=== PATIENT | male | born 1935 | race Caucasian/White ===

== ENCOUNTER 2018-12-19 18:09 | Observation (INO) ==
[2018-12-19] MEDS ORDERED: 0.9 % Sodium Chloride 1,000 ML IVC STA (18:24)
[2018-12-19 18:51] LABS: Basophils % 0.3 %; Eosinophils # 0.1 K/mcL (0.0-0.6); Eosinophils % 1.6 %; Hematocrit 46.7 % (37.5-50.1); Hemoglobin 15.7 g/dL (12.9-16.9); Immature Granulocytes % 0.5 % (0-4); Lymphocytes # 0.7 K/mcL (0.6-4.6); Lymphocytes % 8.5 %; Mean Corpuscular HGB Conc 33.6 g/dL (31.6-35.5); Mean Corpuscular Hemoglobin 30.3 pg (28.0-33.3); Mean Corpuscular Volume 90.2 fL (83.0-100.0); Mean Platelet Volume 11.2 fL (9.4-12.4); Monocytes # 0.4 K/mcL (0.0-1.3); Monocytes % 5.1 %; Neutrophils # 7.3 K/mcL (1.6-8.9); Platelet Count 164 K/mcL (140-400); Red Blood Count 5.18 M/mcL (4.19-5.50); Red Cell Distribution Width 13.3 % (11.5-14.5); White Blood Count 8.7 K/mcL (4.3-11.1)
[2018-12-19 19:12] LABS: Potassium 4.5 mEq/L (3.5-5.1)
[2018-12-19 19:13] LABS: Calcium 10.2 mg/dL (8.6-10.3); Magnesium 1.9 mg/dL (1.6-2.6); Troponin I 0.03 ng/mL (< 0.04)
[2018-12-19] MEDS ORDERED: Aspirin 81 MG TAB.CHEW PO ONE (20:13)
[2018-12-19] MEDS ORDERED: Naloxone 0.4 MG/ML INJ IVP PRN (23:08)
[2018-12-19] MEDS ORDERED: *HR* Dextrose 50 % in Water (Syg) 50 ML SYRINGE IVP PRN (23:11)
[2018-12-19] MEDS ORDERED: D5% in Water 1,000 ML IVC PRN (23:11)
[2018-12-19] MEDS ORDERED: Dextrose Gel 15 GM/37.5 ML TUBE PO PRN ×2 (23:11)
[2018-12-19] MEDS ORDERED: 0.9 % Sodium Chloride 1,000 ML IVC SCH (23:15)
[2018-12-20] MEDS: Insulin LISPRO 300 UNITS/3 ML VIAL SQ SCH ×4 (00:22→18:34)
[2018-12-20] MEDS ORDERED: *HR* Heparin 5,000 UNIT/ML VIAL IVP ONE (04:10)
[2018-12-20] MEDS ORDERED: *HR* Heparin 5,000 UNIT/ML VIAL IVP PRN ×2 (04:10)
[2018-12-20] MEDS ORDERED: Heparin 25,000 UNIT/250 ML D5W 25,000 UNIT/250 ML IV.SOLN IVC SCH (04:15)
[2018-12-20 06:17] LABS: Hematocrit 41.4 % (37.5-50.1); Mean Corpuscular HGB Conc 34.1 g/dL (31.6-35.5); Mean Corpuscular Hemoglobin 29.9 pg (28.0-33.3); Mean Corpuscular Volume 87.9 fL (83.0-100.0); Mean Platelet Volume 10.9 fL (9.4-12.4); Platelet Count 152 K/mcL (140-400); Red Blood Count 4.71 M/mcL (4.19-5.50); Red Cell Distribution Width 13.4 % (11.5-14.5); White Blood Count 9.8 K/mcL (4.3-11.1)
[2018-12-20 06:19] LABS: Hemoglobin 14.1 g/dL (12.9-16.9)
[2018-12-20 06:24] LABS: INR 1.1; Prothrombin Time 12.5 Seconds (9.4-12.1)
[2018-12-20 06:27] LABS: Heparin anti-factor XA UFH 1.16 IU/mL (0.30-0.70)
[2018-12-20 06:38] LABS: BUN/Creatinine Ratio 21 (6-26); Blood Urea Nitrogen 36 mg/dL (8-23); Calcium 9.5 mg/dL (8.6-10.3); Carbon Dioxide 28 mEq/L (23-29); Chloride 109 mEq/L (98-107); Glucose 112 mg/dL (70-105); Osmolality,Calculated 301 (280-300); Potassium 3.8 mEq/L (3.5-5.1); Sodium 141 mEq/L (136-145); eGFR For African Americans 47 (> 60); eGFR For Non-African Americans 39 (> 60)
[2018-12-20 06:48] LABS: Troponin I > 73.00 ng/mL (< 0.04)
[2018-12-20 07:56] LABS: Estimated Average Glucose 160 mg/dl
[2018-12-20] MEDS: Lisinopril 20 MG TABLET PO SCH (12:22)
[2018-12-20] MEDS: Aspirin 81 MG TAB.CHEW PO SCH (12:22)
[2018-12-20] MEDS ORDERED: *HR* OxyCODONE/APAP 5/325 TABLET PO PRN (18:53)
[2018-12-20] MEDS ORDERED: Acetaminophen 325 MG TABLET PO PRN (20:57)
[2018-12-21] MEDS: Insulin LISPRO 300 UNITS/3 ML VIAL SQ SCH (00:17)
[2018-12-21] MEDS: Lisinopril 20 MG TABLET PO SCH (07:49)
[2018-12-21] MEDS: Aspirin 81 MG TAB.CHEW PO SCH (07:49)
[2018-12-21 07:50] VITALS: BP 144/72
[2018-12-21 08:32] LABS: Basophils % 0.4 %; Eosinophils # 0.2 K/mcL (0.0-0.6); Hematocrit 45.1 % (37.5-50.1); Hemoglobin 15.2 g/dL (12.9-16.9); Immature Granulocytes % 0.3 % (0-4); Mean Corpuscular HGB Conc 33.7 g/dL (31.6-35.5); Mean Platelet Volume 11.3 fL (9.4-12.4); Monocytes # 0.5 K/mcL (0.0-1.3); Monocytes % 6.4 %; Neutrophils # 6.1 K/mcL (1.6-8.9); Platelet Count 166 K/mcL (140-400); Red Blood Count 5.07 M/mcL (4.19-5.50); Red Cell Distribution Width 13.7 % (11.5-14.5); Segmented Neutrophils % 77.9 %; White Blood Count 7.9 K/mcL (4.3-11.1)
[2018-12-21 08:39] LABS: Calcium 9.4 mg/dL (8.6-10.3); Potassium 3.9 mEq/L (3.5-5.1)
[2018-12-21 09:32] LABS: Bilirubin,Urine Negative (Negative); Blood,Urine Negative (Negative); Clarity,Urine Clear (Clear); Color,Urine Yellow (Yellow); Glucose,Urine (UA) Normal (Normal); Ketones,Urine Negative (Negative); Leukocyte Esterase,Urine Negative (Negative); Nitrite,Urine Negative (Negative); Protein,Urine Trace mg/dL (Neg-Trace); Specific Gravity,Urine 1.023 (1.010-1.025); Urobilinogen,Urine Normal (Normal)
== END 2018-12-21 12:11 | disposition home health service (06) ==
LOC: 3BNU 18:09 → EMEROOARM 18:09 → SUATTDRO 21:48 → 3BNU 22:17
PROVIDERS: ADMIT Internal Medicine; ATTEND Family Medicine

== ENCOUNTER 2020-07-01 14:55 | Observation (INO) ==
[2020-07-01 15:25] LABS: Basophils % 0.3 %; Eosinophils # 0.1 K/mcL (0.0-0.6); Eosinophils % 1.2 %; Hemoglobin 12.6 g/dL (12.9-16.9); Immature Granulocytes % 0.6 % (0-4); Lymphocytes % 13.9 %; Mean Corpuscular HGB Conc 30.7 g/dL (31.6-35.5); Mean Corpuscular Hemoglobin 29.4 pg (28.0-33.3); Mean Corpuscular Volume 95.6 fL (83.0-100.0); Mean Platelet Volume 10.8 fL (9.4-12.4); Monocytes # 0.6 K/mcL (0.0-1.3); Monocytes % 8.3 %; Neutrophils # 5.5 K/mcL (1.6-8.9); Platelet Count 200 K/mcL (140-400); Red Blood Count 4.29 M/mcL (4.19-5.50); Red Cell Distribution Width 16.2 % (11.5-14.5); Segmented Neutrophils % 75.7 %; White Blood Count 7.2 K/mcL (4.3-11.1)
[2020-07-01 15:47] LABS: BUN/Creatinine Ratio 19 (6-26); Blood Urea Nitrogen 26 mg/dL (8-23); Calcium 9.2 mg/dL (8.6-10.3); Carbon Dioxide 26 mEq/L (23-29); Chloride 107 mEq/L (98-107); Glucose 129 mg/dL (70-105); Osmolality,Calculated 294 (280-300); Sodium 139 mEq/L (136-145); Troponin I 0.03 ng/mL (< 0.04); eGFR For African Americans > 60 (> 60); eGFR For Non-African Americans 50 (> 60)
[2020-07-01] MEDS ORDERED: Furosemide 40 MG/4 ML VIAL IVP ONE (17:24)
[2020-07-01] MEDS ORDERED: Acetaminophen 325 MG TABLET PO PRN (17:48)
[2020-07-01] MEDS ORDERED: Ondansetron ODT 4 MG TAB.RAPDIS SL PRN (17:48)
[2020-07-01] MEDS ORDERED: *HR* LORazepam 2 MG/ML VIAL IVP ONE (17:52)
[2020-07-01] MEDS ORDERED: Dextrose Gel 15 GM/37.5 ML TUBE PO PRN ×2 (18:02)
[2020-07-01] MEDS ORDERED: D5% in Water 1,000 ML IVC PRN (18:02)
[2020-07-01] MEDS ORDERED: *HR* Dextrose 50 % in Water (Vial) 50 ML VIAL IVP PRN (18:02)
[2020-07-01 18:31] LABS: INR 1.1; Prothrombin Time 13.1 Seconds (9.4-12.1)
[2020-07-01] MEDS: Insulin LISPRO 300 UNITS/3 ML VIAL SUBQ SCH (21:40)
[2020-07-01] MEDS: QUEtiapine Fumarate 25 MG TABLET PO SCH (21:49)
[2020-07-02 02:20] LABS: Hematocrit 37.8 % (37.5-50.1); Hemoglobin 11.4 g/dL (12.9-16.9); Mean Corpuscular HGB Conc 30.2 g/dL (31.6-35.5); Mean Corpuscular Hemoglobin 29.1 pg (28.0-33.3); Mean Corpuscular Volume 96.4 fL (83.0-100.0); Mean Platelet Volume 11.2 fL (9.4-12.4); Platelet Count 161 K/mcL (140-400); Red Blood Count 3.92 M/mcL (4.19-5.50); Red Cell Distribution Width 16.2 % (11.5-14.5); White Blood Count 5.5 K/mcL (4.3-11.1)
[2020-07-02 02:37] LABS: BUN/Creatinine Ratio 19 (6-26); Blood Urea Nitrogen 26 mg/dL (8-23); Calcium 8.4 mg/dL (8.6-10.3); Carbon Dioxide 27 mEq/L (23-29); Chloride 108 mEq/L (98-107); Glucose 139 mg/dL (70-105); Osmolality,Calculated 299 (280-300); Potassium 4.2 mEq/L (3.5-5.1); Sodium 141 mEq/L (136-145); eGFR For African Americans > 60 (> 60); eGFR For Non-African Americans 50 (> 60)
[2020-07-02] MEDS: Insulin LISPRO 300 UNITS/3 ML VIAL SUBQ SCH ×4 (08:09→21:03)
[2020-07-02] MEDS: Aspirin 81 MG TAB.CHEW PO SCH (09:55)
[2020-07-02] MEDS: Furosemide 40 MG/4 ML VIAL IVP SCH ×2 (09:56→17:25)
[2020-07-02] MEDS: *HR* HYDROcodone/Acet 5/325 mg TABLET PO PRN ×2 (14:29→20:30)
[2020-07-02 16:16] LABS: Appearance of Pleural Fl Hazy (Clear)
[2020-07-02 16:17] LABS: Basophils,Pleural Fluid 0 %; Eosinophils,Pleural Fluid 0 %
[2020-07-02] MEDS ORDERED: Haloperidol Lactate 5 MG/ML VIAL IVP ONE (17:37)
[2020-07-02] MEDS: QUEtiapine Fumarate 25 MG TABLET PO SCH (20:55)
[2020-07-02] MEDS ORDERED: Haloperidol Lactate 5 MG/ML VIAL IM ONE (23:40)
[2020-07-03 01:56] LABS: Basophils % 0.3 %; Eosinophils # 0.2 K/mcL (0.0-0.6); Hematocrit 40.2 % (37.5-50.1); Hemoglobin 12.7 g/dL (12.9-16.9); Immature Granulocytes % 0.2 % (0-4); Lymphocytes # 1.3 K/mcL (0.6-4.6); Lymphocytes % 19.4 %; Mean Corpuscular HGB Conc 31.6 g/dL (31.6-35.5); Mean Corpuscular Hemoglobin 30.1 pg (28.0-33.3); Mean Corpuscular Volume 95.3 fL (83.0-100.0); Mean Platelet Volume 11.3 fL (9.4-12.4); Monocytes # 0.6 K/mcL (0.0-1.3); Neutrophils # 4.5 K/mcL (1.6-8.9); Platelet Count 151 K/mcL (140-400); Red Blood Count 4.22 M/mcL (4.19-5.50); Red Cell Distribution Width 16.1 % (11.5-14.5); Segmented Neutrophils % 68.1 %; White Blood Count 6.6 K/mcL (4.3-11.1)
[2020-07-03 02:17] LABS: Calcium 8.5 mg/dL (8.6-10.3); Magnesium 1.5 mg/dL (1.6-2.6); Phosphorous 3.8 mg/dL (2.7-4.5); Potassium 3.6 mEq/L (3.5-5.1)
[2020-07-03] MEDS: *HR* HYDROcodone/Acet 5/325 mg TABLET PO PRN (02:45)
[2020-07-03] MEDS ORDERED: Magnesium Sulfate 1 GM/102 ML PIGGYBACK IVPB ONE (07:21)
[2020-07-03] MEDS: Insulin LISPRO 300 UNITS/3 ML VIAL SUBQ SCH ×3 (07:27→16:55)
[2020-07-03] MEDS ORDERED: polyethylene glycoL 3350 17 GM POWD.PACK PO SCH (09:00)
[2020-07-03] MEDS: Furosemide 40 MG/4 ML VIAL IVP SCH (09:22)
[2020-07-03] MEDS: Aspirin 81 MG TAB.CHEW PO SCH (09:22)
[2020-07-03 16:54] VITALS: BP 130/78
[2020-07-03] MEDS ORDERED: Furosemide 40 MG/4 ML VIAL IVP SCH (17:00)
== END 2020-07-03 19:15 | disposition home health service (06) ==
LOC: EMEROOARM 14:55 → 2ANU 14:55 → SUATTDRO 17:50 → 2ANU 18:38
PROVIDERS: ADMIT Internal Medicine; ATTEND Internal Medicine

== ENCOUNTER 2020-11-13 20:48 | Observation (INO) ==
[2020-11-13] MEDS ORDERED: Tdap (Boostrix) Vaccine 0.5 ML SYRINGE IM ONE (23:38)
[2020-11-14 01:20] LABS: Basophils % 0.1 %; Eosinophils # 0.2 K/mcL (0.0-0.6); Eosinophils % 2.3 %; Hemoglobin 12.3 g/dL (12.9-16.9); Immature Granulocytes % 0.3 % (0-4); Lymphocytes # 0.8 K/mcL (0.6-4.6); Lymphocytes % 9.7 %; Mean Corpuscular HGB Conc 32.4 g/dL (31.6-35.5); Mean Corpuscular Hemoglobin 29.7 pg (28.0-33.3); Mean Corpuscular Volume 91.8 fL (83.0-100.0); Mean Platelet Volume 11.6 fL (9.4-12.4); Monocytes # 0.6 K/mcL (0.0-1.3); Monocytes % 7.9 %; Neutrophils # 6.2 K/mcL (1.6-8.9); Platelet Count 149 K/mcL (140-400); Red Blood Count 4.14 M/mcL (4.19-5.50); Red Cell Distribution Width 14.7 % (11.5-14.5); Segmented Neutrophils % 79.7 %; White Blood Count 7.8 K/mcL (4.3-11.1)
[2020-11-14 01:29] LABS: INR 1.2; Prothrombin Time 13.3 Seconds (9.4-12.1)
[2020-11-14 01:31] LABS: Activated Partial Thrombo Time 32.3 Seconds (26.0-36.0)
[2020-11-14 01:48] LABS: Alanine Aminotransferase 25 Units/L (7-52); Albumin 3.7 g/dL (3.5-5.7); Albumin/Globulin Ratio 1.3 (1.1-2.2); Alkaline Phosphatase 81 Units/L (34-104); Aspartate Amino Transferase 26 Units/L (13-39); BUN/Creatinine Ratio 21 (6-26); Bilirubin,Direct 0.2 mg/dL (0.0-0.2); Bilirubin,Indirect 0.9 mg/dL (0.0-1.0); Bilirubin,Total 1.1 mg/dL (0.3-1.0); Blood Urea Nitrogen 30 mg/dL (8-23); Calcium 9.4 mg/dL (8.6-10.3); Carbon Dioxide 28 mEq/L (23-29); Chloride 103 mEq/L (98-107); Creatine Kinase 260 Units/L (30-223); Ethanol < 10 mg/dL (Less than 10); Globulin 2.9 g/dL (2.4-3.5); Glucose 206 mg/dL (70-105); Osmolality,Calculated 300 (280-300); Potassium 4.5 mEq/L (3.5-5.1); Sodium 139 mEq/L (136-145); Total Protein 6.6 g/dL (6.4-8.9); Troponin I 0.03 ng/mL (< 0.04); eGFR For African Americans 56 (> 60); eGFR For Non-African Americans 46 (> 60)
[2020-11-14 02:53] LABS: Bilirubin,Urine Negative (Negative); Blood,Urine Negative (Negative); Clarity,Urine Clear (Clear); Color,Urine Yellow (Yellow); Glucose,Urine (UA) Normal (Normal); Ketones,Urine Negative (Negative); Leukocyte Esterase,Urine Negative (Negative); Nitrite,Urine Negative (Negative); Protein,Urine Trace mg/dL (Neg-Trace); Specific Gravity,Urine 1.019 (1.010-1.025)
[2020-11-14 03:04] LABS: Amphetamine Screen,Urine Negative ng/mL (Cutoff=1000); Barbiturate Screen,Urine Negative ng/mL (Cutoff=200); Benzodiazepines Screen,Urine Negative ng/mL (Cutoff=200); Cannabinoid Screen,Urine Negative ng/mL (Cutoff = 50); Cocaine Screen,Urine Negative ng/mL (Cutoff= 300); Opiate Screen,Urine Negative ng/mL (Cutoff=300); Phencyclidine Screen,Urine Negative ng/mL (Cutoff=25)
[2020-11-14] MEDS ORDERED: Azithromycin 500 MG in 0.9 % Sodium Chloride 250 ML IVPB ONE (03:30)
[2020-11-14] MEDS ORDERED: cefTRIAXone 1,000 MG in Water for inj. (sterile) 10 ML IVP ONE (03:30)
[2020-11-14] MEDS ORDERED: Furosemide 40 MG/4 ML VIAL IVP ONE (03:30)
[2020-11-14] MEDS ORDERED: Naloxone 0.4 MG/ML INJ IVP PRN (05:09)
[2020-11-14] MEDS ORDERED: Ondansetron 4 MG/2 ML VIAL IVP PRN (05:09)
[2020-11-14] MEDS ORDERED: Acetaminophen 325 MG TABLET PO PRN (05:09)
[2020-11-14 05:22] LABS: Influenza A PCR Negative (Negative); Influenza B PCR Negative (Negative); Resp. Syncytial Virus PCR Negative (Negative)
[2020-11-14] MEDS ORDERED: *HR* Dextrose 50 % in Water (Vial) 50 ML VIAL IVP PRN (05:27)
[2020-11-14] MEDS ORDERED: D5% in Water 1,000 ML IVC PRN (05:27)
[2020-11-14] MEDS ORDERED: Dextrose Gel 15 GM/37.5 ML TUBE PO PRN ×2 (05:27)
[2020-11-14 05:29] LABS: SARS-CoV-2 by PCR (In House) Negative (Negative)
[2020-11-14] MEDS: Insulin LISPRO 300 UNITS/3 ML VIAL SUBQ SCH ×2 (13:40→17:13)
[2020-11-14] MEDS: Aspirin 81 MG TAB.CHEW PO SCH (13:52)
[2020-11-14] MEDS: Furosemide 20 MG TABLET PO SCH (13:52)
[2020-11-14] MEDS ORDERED: *HR* LORazepam 2 MG/ML VIAL IVP ONE (16:33)
[2020-11-15 05:22] LABS: Hematocrit 39.6 % (37.5-50.1); Hemoglobin 12.9 g/dL (12.9-16.9); Mean Corpuscular HGB Conc 32.6 g/dL (31.6-35.5); Mean Corpuscular Hemoglobin 29.1 pg (28.0-33.3); Mean Corpuscular Volume 89.4 fL (83.0-100.0); Mean Platelet Volume 11.3 fL (9.4-12.4); Platelet Count 134 K/mcL (140-400); Red Blood Count 4.43 M/mcL (4.19-5.50); Red Cell Distribution Width 14.6 % (11.5-14.5); White Blood Count 6.2 K/mcL (4.3-11.1)
[2020-11-15 05:45] LABS: Potassium 3.9 mEq/L (3.5-5.1)
[2020-11-15] MEDS: Insulin LISPRO 300 UNITS/3 ML VIAL SUBQ SCH ×3 (07:57→18:05)
[2020-11-15] MEDS: Furosemide 20 MG TABLET PO SCH (13:24)
[2020-11-15] MEDS: Aspirin 81 MG TAB.CHEW PO SCH (13:24)
[2020-11-16 06:28] LABS: Potassium 3.8 mEq/L (3.5-5.1)
[2020-11-16] MEDS: Furosemide 20 MG TABLET PO SCH (09:43)
[2020-11-16] MEDS: Aspirin 81 MG TAB.CHEW PO SCH (09:43)
[2020-11-16] MEDS: Insulin LISPRO 300 UNITS/3 ML VIAL SUBQ SCH ×2 (09:44→13:30)
[2020-11-16 10:01] LABS: Folate 15.6 ng/mL (3.0-16.0)
[2020-11-16 10:10] LABS: Calcium 8.9 mg/dL (8.6-10.3)
[2020-11-16] MEDS: Thiamine (B-1) 100 MG TABLET PO SCH (13:29)
[2020-11-16] MEDS: QUEtiapine Fumarate 25 MG TABLET PO SCH (22:08)
[2020-11-17] MEDS: Insulin LISPRO 300 UNITS/3 ML VIAL SUBQ SCH ×4 (08:28→16:02)
[2020-11-17] MEDS: Aspirin 81 MG TAB.CHEW PO SCH (08:34)
[2020-11-17] MEDS: Thiamine (B-1) 100 MG TABLET PO SCH (08:34)
[2020-11-17] MEDS: Furosemide 20 MG TABLET PO SCH (08:34)
[2020-11-17] MEDS: Cyanocobalamin (B-12) 1,000 MCG/ML VIAL IM SCH (08:34)
[2020-11-17 10:29] LABS: Calcium 9.2 mg/dL (8.6-10.3)
[2020-11-17] MEDS: QUEtiapine Fumarate 25 MG TABLET PO SCH ×2 (12:06→20:45)
[2020-11-17 13:15] LABS: Hematocrit 43.2 % (37.5-50.1); Hemoglobin 13.8 g/dL (12.9-16.9); Mean Corpuscular HGB Conc 31.9 g/dL (31.6-35.5); Mean Corpuscular Hemoglobin 28.7 pg (28.0-33.3); Mean Corpuscular Volume 89.8 fL (83.0-100.0); Mean Platelet Volume 11.5 fL (9.4-12.4); Platelet Count 154 K/mcL (140-400); Red Blood Count 4.81 M/mcL (4.19-5.50); Red Cell Distribution Width 14.7 % (11.5-14.5); White Blood Count 5.7 K/mcL (4.3-11.1)
[2020-11-18 02:36] LABS: Hematocrit 38.1 % (37.5-50.1); Hemoglobin 12.4 g/dL (12.9-16.9); Mean Corpuscular HGB Conc 32.5 g/dL (31.6-35.5); Mean Platelet Volume 11.7 fL (9.4-12.4); Platelet Count 154 K/mcL (140-400); Red Blood Count 4.28 M/mcL (4.19-5.50); Red Cell Distribution Width 14.6 % (11.5-14.5); White Blood Count 7.2 K/mcL (4.3-11.1)
[2020-11-18 02:54] LABS: Calcium 8.7 mg/dL (8.6-10.3); Potassium 3.9 mEq/L (3.5-5.1)
[2020-11-18] MEDS: Insulin LISPRO 300 UNITS/3 ML VIAL SUBQ SCH ×3 (08:30→17:40)
[2020-11-18] MEDS: Thiamine (B-1) 100 MG TABLET PO SCH (09:07)
[2020-11-18] MEDS: Furosemide 20 MG TABLET PO SCH (09:07)
[2020-11-18] MEDS: Aspirin 81 MG TAB.CHEW PO SCH (09:07)
[2020-11-18] MEDS: Cyanocobalamin (B-12) 1,000 MCG/ML VIAL IM SCH (09:08)
[2020-11-18] MEDS: QUEtiapine Fumarate 25 MG TABLET PO SCH ×2 (09:08→20:31)
[2020-11-18] MEDS: 0.9 % Sodium Chloride 1,000 ML IVC SCH (11:54)
[2020-11-19] MEDS: 0.9 % Sodium Chloride 1,000 ML IVC SCH (02:03)
[2020-11-19 05:37] LABS: Hematocrit 35.5 % (37.5-50.1); Hemoglobin 11.2 g/dL (12.9-16.9); Mean Corpuscular HGB Conc 31.5 g/dL (31.6-35.5); Mean Corpuscular Hemoglobin 28.5 pg (28.0-33.3); Mean Corpuscular Volume 90.3 fL (83.0-100.0); Mean Platelet Volume 11.8 fL (9.4-12.4); Platelet Count 153 K/mcL (140-400); Red Blood Count 3.93 M/mcL (4.19-5.50); Red Cell Distribution Width 14.6 % (11.5-14.5); White Blood Count 5.7 K/mcL (4.3-11.1)
[2020-11-19 05:51] LABS: Calcium 8.4 mg/dL (8.6-10.3); Potassium 3.7 mEq/L (3.5-5.1)
[2020-11-19] MEDS: Insulin LISPRO 300 UNITS/3 ML VIAL SUBQ SCH ×3 (07:40→18:13)
[2020-11-19] MEDS: Thiamine (B-1) 100 MG TABLET PO SCH (09:13)
[2020-11-19] MEDS: Cyanocobalamin (B-12) 1,000 MCG/ML VIAL IM SCH (09:13)
[2020-11-19] MEDS: QUEtiapine Fumarate 25 MG TABLET PO SCH (09:14)
[2020-11-19] MEDS: Aspirin 81 MG TAB.CHEW PO SCH (09:14)
[2020-11-19] MEDS: Furosemide 20 MG TABLET PO SCH (09:14)
[2020-11-19 14:31] VITALS: BP 150/75; PULSE 71; TEMP 97.7; O2SAT 97
== END 2020-11-19 19:44 | disposition home health service (06) ==
LOC: 3ANU 20:48 → EMEROOARM 20:48 → SUATTDRO 11-14 04:59 → CDU 11-14 07:53 → 3ANU 11-15 11:10
PROVIDERS: ADMIT Student in an Organized Health Care Education/Training Program; ATTEND Internal Medicine

== ENCOUNTER 2021-01-26 15:26 | Inpatient (IN) ==
[2021-01-26] MEDS ORDERED: Ondansetron 4 MG/2 ML VIAL IVP ONE (15:38)
[2021-01-26 16:08] LABS: Basophils % 0.3 %; Eosinophils # 0.1 K/mcL (0.0-0.6); Eosinophils % 1.7 %; Hematocrit 33.9 % (37.5-50.1); Hemoglobin 10.3 g/dL (12.9-16.9); Immature Granulocytes % 0.6 % (0-4); Lymphocytes % 14.2 %; Mean Corpuscular HGB Conc 30.4 g/dL (31.6-35.5); Mean Corpuscular Hemoglobin 29.9 pg (28.0-33.3); Mean Corpuscular Volume 98.5 fL (83.0-100.0); Monocytes # 0.6 K/mcL (0.0-1.3); Monocytes % 7.7 %; Neutrophils # 5.4 K/mcL (1.6-8.9); Platelet Count 229 K/mcL (140-400); Red Blood Count 3.44 M/mcL (4.19-5.50); Segmented Neutrophils % 75.5 %; White Blood Count 7.1 K/mcL (4.3-11.1)
[2021-01-26 16:35] LABS: Albumin 3.6 g/dL (3.5-5.7); Albumin/Globulin Ratio 1.2 (1.1-2.2); Calcium 8.9 mg/dL (8.6-10.3); Globulin 2.9 g/dL (2.4-3.5); Potassium 4.3 mEq/L (3.5-5.1); Total Protein 6.5 g/dL (6.4-8.9); Troponin I 0.12 ng/mL (< 0.04)
[2021-01-26] MEDS ORDERED: Isovue-370 500 ML BOTTLE IVP ONE (16:42)
[2021-01-26 17:03] LABS: Influenza A PCR Negative (Negative); Influenza B PCR Negative (Negative); Resp. Syncytial Virus PCR Negative (Negative)
[2021-01-26 17:04] LABS: SARS-CoV-2 by PCR (In House) Negative (Negative)
[2021-01-26 17:14] LABS: INR 1.1; Prothrombin Time 11.8 Seconds (9.4-12.1)
[2021-01-26] MEDS ORDERED: Naloxone 0.4 MG/ML INJ IVP PRN (18:21)
[2021-01-26] MEDS ORDERED: Ondansetron 4 MG/2 ML VIAL IVP PRN (18:21)
[2021-01-26] MEDS ORDERED: Acetaminophen 325 MG TABLET PO PRN (18:21)
[2021-01-26] MEDS ORDERED: Perflutren Lipid Microsphere 1.3 ML in 0.9 % Sodium Chloride 8.7 ML IVP PRN (19:06)
[2021-01-26 21:52] LABS: Troponin I 0.13 ng/mL (< 0.04)
[2021-01-26] MEDS ORDERED: 0.9 % Sodium Chloride 500 ML IVC ONE (21:52)
[2021-01-26] MEDS ORDERED: *HR* Atropine Sulfate 1 MG/10 ML SYRINGE ONE (22:34)
[2021-01-26] MEDS ORDERED: Amiodarone Premix 150 MG/100 ML BAG IVPB ONE (22:45)
[2021-01-26] MEDS ORDERED: *HR* Heparin 5,000 UNIT/ML VIAL IVP PRN ×2 (22:45)
[2021-01-26] MEDS ORDERED: *HR* Heparin 5,000 UNIT/ML VIAL IVP ONE (22:45)
[2021-01-26] MEDS ORDERED: Amiodarone Premix 360 MG/200 ML BAG IVC ONE (22:45)
[2021-01-26 22:46] LABS: ABG Base Excess -1 mEq/L (-2 to 3); ABG HCO3 24 mEq/L (21-27); ABG Oxygen Saturation 95 % (95-98); ABG PCO2 38 mmHg (35-45); ABG PO2 75 mmHg (85-104); ABG TCO2 25 mEq/L (20-26)
[2021-01-26] MEDS: Heparin 25,000UNIT/250ML 1/2NS 25,000 UNIT/250 ML IV.SOLN IVC SCH (23:18)
[2021-01-26 23:22] LABS: Magnesium 1.9 mg/dL (1.6-2.6)
[2021-01-26] MEDS ORDERED: Acetaminophen IV 1,000 MG/100 ML BAG IVPB ONE (23:23)
[2021-01-27] MEDS ORDERED: Vancomycin 1,250 MG/262.5 ML IV.SOLN IVPB ONE (01:00)
[2021-01-27 03:31] LABS: Basophils % 0.1 %; Hematocrit 33.7 % (37.5-50.1); Hemoglobin 10.2 g/dL (12.9-16.9); Immature Granulocytes % 0.8 % (0-4); Lymphocytes # 0.5 K/mcL (0.6-4.6); Lymphocytes % 2.2 %; Mean Corpuscular HGB Conc 30.3 g/dL (31.6-35.5); Mean Corpuscular Hemoglobin 29.4 pg (28.0-33.3); Mean Corpuscular Volume 97.1 fL (83.0-100.0); Mean Platelet Volume 11.6 fL (9.4-12.4); Monocytes % 9.2 %; Neutrophils # 18.9 K/mcL (1.6-8.9); Platelet Count 256 K/mcL (140-400); Red Blood Count 3.47 M/mcL (4.19-5.50); Segmented Neutrophils % 87.7 %
[2021-01-27 03:37] LABS: Calcium 8.8 mg/dL (8.6-10.3); Magnesium 2.4 mg/dL (1.6-2.6)
[2021-01-27 03:38] LABS: White Blood Count 21.6 K/mcL (4.3-11.1)
[2021-01-27] MEDS ORDERED: Amiodarone Premix 360 MG/200 ML BAG IVC SCH (04:46)
[2021-01-27] MEDS ORDERED: *HR* Atropine Sulfate 1 MG/10 ML SYRINGE IVP ONE (06:24)
[2021-01-27 16:38] LABS: Clarity,Urine Clear (Clear); Color,Urine Yellow (Yellow)
[2021-01-27 16:39] LABS: Bilirubin,Urine Negative (Negative); Blood,Urine Negative (Negative); Glucose,Urine (UA) Normal (Normal); Ketones,Urine Negative (Negative); Leukocyte Esterase,Urine Negative (Negative); Nitrite,Urine Negative (Negative); PH,Urine 5.5 pH Units (5.0-8.0); Protein,Urine 30 mg/dL (Neg-Trace); Specific Gravity,Urine > 1.030 (1.010-1.025); Urobilinogen,Urine Normal (Normal)
[2021-01-27 16:40] LABS: Mucus,Urine Few per lpf (None-Few); Squamous Epithelial Cell,Urine Few per hpf (None-Few)
[2021-01-27] MEDS: QUEtiapine Fumarate 25 MG TABLET PO SCH (20:28)
[2021-01-27] MEDS: Heparin 25,000UNIT/250ML 1/2NS 25,000 UNIT/250 ML IV.SOLN IVC SCH (23:37)
[2021-01-27] MEDS: Piperacillin/Tazobactam 3.375 GM in 0.9 % Sodium Chloride Mini Bag 100 ML IVPB SCH (23:49)
[2021-01-28 02:16] LABS: Basophils % 0.1 %; Eosinophils % 0.1 %; Hematocrit 29.8 % (37.5-50.1); Hemoglobin 9.3 g/dL (12.9-16.9); Immature Granulocytes % 0.7 % (0-4); Lymphocytes # 0.9 K/mcL (0.6-4.6); Lymphocytes % 6.5 %; Mean Corpuscular HGB Conc 31.2 g/dL (31.6-35.5); Mean Corpuscular Hemoglobin 30.2 pg (28.0-33.3); Mean Corpuscular Volume 96.8 fL (83.0-100.0); Mean Platelet Volume 11.5 fL (9.4-12.4); Monocytes # 0.9 K/mcL (0.0-1.3); Monocytes % 6.8 %; Neutrophils # 11.5 K/mcL (1.6-8.9); Platelet Count 193 K/mcL (140-400); Red Blood Count 3.08 M/mcL (4.19-5.50); Red Cell Distribution Width 18.5 % (11.5-14.5); Segmented Neutrophils % 85.8 %; White Blood Count 13.4 K/mcL (4.3-11.1)
[2021-01-28 02:34] LABS: Calcium 8.5 mg/dL (8.6-10.3); Magnesium 2.4 mg/dL (1.6-2.6); Potassium 4.9 mEq/L (3.5-5.1)
[2021-01-28] MEDS: Thiamine (B-1) 100 MG TABLET PO SCH (08:52)
[2021-01-28] MEDS: Aspirin 81 MG TAB.CHEW PO SCH (08:52)
[2021-01-28] MEDS: Piperacillin/Tazobactam 3.375 GM in 0.9 % Sodium Chloride Mini Bag 100 ML IVPB SCH ×2 (08:52→20:41)
[2021-01-28] MEDS: Cyanocobalamin (B-12) 1,000 MCG TABLET PO SCH (08:52)
[2021-01-28] MEDS ORDERED: 0.9 % Sodium Chloride 1,000 ML IVC SCH (14:30)
[2021-01-28 14:40] LABS: Uric Acid 8.7 mg/dL (2.3-7.6)
[2021-01-28 14:53] LABS: Vitamin D 25 Hydroxy 26 ng/mL (30-80)
[2021-01-28 17:14] LABS: Hepatitis B Surface Antigen Nonreactive (Nonreactive)
[2021-01-28 17:46] LABS: Hepatitis A Antibody IgM Nonreactive (Nonreactive); Hepatitis C Virus Antibody Nonreactive (Nonreactive)
[2021-01-28 17:49] LABS: Hepatitis B Core IgM Nonreactive (Nonreactive)
[2021-01-28 20:06] LABS: Protein/Creatinine Ratio,Urine 0.62 mg/mg (0.00-0.20); Sodium, Urine 47.4 mEq/L
[2021-01-28] MEDS: QUEtiapine Fumarate 25 MG TABLET PO SCH (20:42)
[2021-01-28] MEDS: Heparin 25,000UNIT/250ML 1/2NS 25,000 UNIT/250 ML IV.SOLN IVC SCH (22:51)
[2021-01-29 03:18] LABS: Basophils % 0.2 %; Eosinophils # 0.1 K/mcL (0.0-0.6); Eosinophils % 0.9 %; Hematocrit 28.2 % (37.5-50.1); Hemoglobin 8.6 g/dL (12.9-16.9); Immature Granulocytes % 0.6 % (0-4); Lymphocytes # 0.6 K/mcL (0.6-4.6); Lymphocytes % 7.1 %; Mean Corpuscular HGB Conc 30.5 g/dL (31.6-35.5); Mean Corpuscular Hemoglobin 29.8 pg (28.0-33.3); Mean Corpuscular Volume 97.6 fL (83.0-100.0); Mean Platelet Volume 11.7 fL (9.4-12.4); Monocytes # 0.7 K/mcL (0.0-1.3); Monocytes % 7.6 %; Neutrophils # 7.1 K/mcL (1.6-8.9); Platelet Count 167 K/mcL (140-400); Red Blood Count 2.89 M/mcL (4.19-5.50); Red Cell Distribution Width 18.3 % (11.5-14.5); Segmented Neutrophils % 83.6 %; White Blood Count 8.5 K/mcL (4.3-11.1)
[2021-01-29 03:39] LABS: Calcium 8.1 mg/dL (8.6-10.3); Potassium 4.5 mEq/L (3.5-5.1)
[2021-01-29] MEDS: *HR* Heparin 5,000 UNIT/ML VIAL SQ SCH ×2 (05:53→18:29)
[2021-01-29] MEDS: Piperacillin/Tazobactam 3.375 GM in 0.9 % Sodium Chloride Mini Bag 100 ML IVPB SCH ×2 (09:24→22:08)
[2021-01-29] MEDS: Cyanocobalamin (B-12) 1,000 MCG TABLET PO SCH (09:25)
[2021-01-29] MEDS: Thiamine (B-1) 100 MG TABLET PO SCH (09:25)
[2021-01-29] MEDS: Aspirin 81 MG TAB.CHEW PO SCH (09:25)
[2021-01-29] MEDS ORDERED: 0.9 % Sodium Chloride 1,000 ML IVC SCH (10:45)
[2021-01-29] MEDS ORDERED: Dextrose Gel 15 GM/37.5 ML TUBE PO PRN ×2 (16:54)
[2021-01-29] MEDS ORDERED: D5% in Water 1,000 ML IVC PRN (16:54)
[2021-01-29] MEDS ORDERED: *HR* Dextrose 50 % in Water (Syg) 50 ML SYRINGE IVP PRN (16:54)
[2021-01-29] MEDS ORDERED: SODIUM CHLORIDE/NAHCO3/KCL/PEG 4,000 ML SOLN.RECON PO ONE (17:00)
[2021-01-29] MEDS: Insulin LISPRO 300 UNITS/3 ML VIAL SUBQ SCH ×2 (17:42→23:58)
[2021-01-29] MEDS: QUEtiapine Fumarate 25 MG TABLET PO SCH (22:07)
[2021-01-30] MEDS: *HR* Heparin 5,000 UNIT/ML VIAL SQ SCH ×2 (06:05→17:58)
[2021-01-30 06:27] LABS: Basophils % 0.2 %; Eosinophils # 0.1 K/mcL (0.0-0.6); Eosinophils % 2.6 %; Hematocrit 31.6 % (37.5-50.1); Hemoglobin 9.5 g/dL (12.9-16.9); Immature Granulocytes % 0.5 % (0-4); Lymphocytes # 0.6 K/mcL (0.6-4.6); Lymphocytes % 11.5 %; Mean Corpuscular HGB Conc 30.1 g/dL (31.6-35.5); Mean Corpuscular Hemoglobin 30.1 pg (28.0-33.3); Mean Platelet Volume 11.8 fL (9.4-12.4); Monocytes # 0.6 K/mcL (0.0-1.3); Monocytes % 10.4 %; Neutrophils # 4.1 K/mcL (1.6-8.9); Platelet Count 149 K/mcL (140-400); Red Blood Count 3.16 M/mcL (4.19-5.50); Segmented Neutrophils % 74.8 %; White Blood Count 5.5 K/mcL (4.3-11.1)
[2021-01-30] MEDS: Insulin LISPRO 300 UNITS/3 ML VIAL SUBQ SCH ×3 (06:30→17:46)
[2021-01-30 06:46] LABS: Calcium 8.3 mg/dL (8.6-10.3); Potassium 4.2 mEq/L (3.5-5.1)
[2021-01-30] MEDS: Piperacillin/Tazobactam 3.375 GM in 0.9 % Sodium Chloride Mini Bag 100 ML IVPB SCH ×2 (10:10→20:45)
[2021-01-30] MEDS: Cyanocobalamin (B-12) 1,000 MCG TABLET PO SCH (10:10)
[2021-01-30] MEDS: Aspirin 81 MG TAB.CHEW PO SCH (10:10)
[2021-01-30] MEDS: Thiamine (B-1) 100 MG TABLET PO SCH (10:10)
[2021-01-30] MEDS: Cholecalciferol (D-3) 1,000 UNIT (25MCG) TABLET PO SCH (12:50)
[2021-01-30] MEDS: QUEtiapine Fumarate 25 MG TABLET PO SCH (20:00)
[2021-01-31] MEDS: *HR* Heparin 5,000 UNIT/ML VIAL SQ SCH ×2 (05:02→17:19)
[2021-01-31] MEDS: Insulin LISPRO 300 UNITS/3 ML VIAL SUBQ SCH ×5 (07:40→20:39)
[2021-01-31 08:49] LABS: Basophils % 0.2 %; Eosinophils # 0.2 K/mcL (0.0-0.6); Eosinophils % 3.8 %; Hematocrit 32.7 % (37.5-50.1); Hemoglobin 10.2 g/dL (12.9-16.9); Immature Granulocytes % 0.7 % (0-4); Lymphocytes # 0.6 K/mcL (0.6-4.6); Lymphocytes % 11.3 %; Mean Corpuscular HGB Conc 31.2 g/dL (31.6-35.5); Mean Corpuscular Hemoglobin 30.7 pg (28.0-33.3); Mean Corpuscular Volume 98.5 fL (83.0-100.0); Mean Platelet Volume 11.2 fL (9.4-12.4); Monocytes # 0.5 K/mcL (0.0-1.3); Monocytes % 9.1 %; Neutrophils # 4.1 K/mcL (1.6-8.9); Platelet Count 170 K/mcL (140-400); Red Blood Count 3.32 M/mcL (4.19-5.50); Segmented Neutrophils % 74.9 %; White Blood Count 5.5 K/mcL (4.3-11.1)
[2021-01-31 08:58] LABS: Calcium 8.7 mg/dL (8.6-10.3); Potassium 4.4 mEq/L (3.5-5.1)
[2021-01-31] MEDS: Aspirin 81 MG TAB.CHEW PO SCH (09:37)
[2021-01-31] MEDS: Thiamine (B-1) 100 MG TABLET PO SCH (09:37)
[2021-01-31] MEDS: Cholecalciferol (D-3) 1,000 UNIT (25MCG) TABLET PO SCH (09:37)
[2021-01-31] MEDS: Cyanocobalamin (B-12) 1,000 MCG TABLET PO SCH (09:38)
[2021-01-31] MEDS: Piperacillin/Tazobactam 3.375 GM in 0.9 % Sodium Chloride Mini Bag 100 ML IVPB SCH (09:38)
[2021-01-31] MEDS: Amoxicillin/Clavulanate 500 MG TABLET PO SCH (17:19)
[2021-01-31] MEDS ORDERED: Piperacillin/Tazobactam 3.375 GM in 0.9 % Sodium Chloride Mini Bag 100 ML IVPB SCH (18:00)
[2021-01-31] MEDS: QUEtiapine Fumarate 25 MG TABLET PO SCH (20:28)
[2021-01-31] MEDS: Lactobacillus 1 EACH CAP.SPRINK PO SCH (20:29)
[2021-02-01 02:14] LABS: Basophils % 0.2 %; Eosinophils # 0.2 K/mcL (0.0-0.6); Eosinophils % 3.3 %; Hematocrit 30.3 % (37.5-50.1); Hemoglobin 9.4 g/dL (12.9-16.9); Immature Granulocytes % 0.6 % (0-4); Lymphocytes # 0.6 K/mcL (0.6-4.6); Lymphocytes % 11.9 %; Mean Corpuscular Hemoglobin 29.9 pg (28.0-33.3); Mean Corpuscular Volume 96.5 fL (83.0-100.0); Mean Platelet Volume 11.2 fL (9.4-12.4); Monocytes # 0.5 K/mcL (0.0-1.3); Monocytes % 9.8 %; Neutrophils # 3.9 K/mcL (1.6-8.9); Platelet Count 180 K/mcL (140-400); Red Blood Count 3.14 M/mcL (4.19-5.50); Red Cell Distribution Width 18.2 % (11.5-14.5); Segmented Neutrophils % 74.2 %; White Blood Count 5.2 K/mcL (4.3-11.1)
[2021-02-01 02:32] LABS: Calcium 8.5 mg/dL (8.6-10.3); Potassium 4.1 mEq/L (3.5-5.1)
[2021-02-01] MEDS: *HR* Heparin 5,000 UNIT/ML VIAL SQ SCH ×2 (05:43→17:20)
[2021-02-01] MEDS: Insulin LISPRO 300 UNITS/3 ML VIAL SUBQ SCH ×4 (08:24→19:57)
[2021-02-01] MEDS: Cyanocobalamin (B-12) 1,000 MCG TABLET PO SCH (08:31)
[2021-02-01] MEDS: Amoxicillin/Clavulanate 500 MG TABLET PO SCH ×2 (08:31→17:20)
[2021-02-01] MEDS: Thiamine (B-1) 100 MG TABLET PO SCH (08:31)
[2021-02-01] MEDS: Cholecalciferol (D-3) 1,000 UNIT (25MCG) TABLET PO SCH (08:31)
[2021-02-01] MEDS: Aspirin 81 MG TAB.CHEW PO SCH (08:31)
[2021-02-01] MEDS: Lactobacillus 1 EACH CAP.SPRINK PO SCH ×2 (08:31→21:04)
[2021-02-01] MEDS: QUEtiapine Fumarate 25 MG TABLET PO SCH (21:04)
[2021-02-02] MEDS: *HR* Heparin 5,000 UNIT/ML VIAL SQ SCH ×2 (06:33→16:59)
[2021-02-02] MEDS: Thiamine (B-1) 100 MG TABLET PO SCH (07:31)
[2021-02-02] MEDS: Amoxicillin/Clavulanate 500 MG TABLET PO SCH ×2 (07:31→16:59)
[2021-02-02] MEDS: Cholecalciferol (D-3) 1,000 UNIT (25MCG) TABLET PO SCH (07:31)
[2021-02-02] MEDS: Cyanocobalamin (B-12) 1,000 MCG TABLET PO SCH (07:31)
[2021-02-02] MEDS: Aspirin 81 MG TAB.CHEW PO SCH (07:31)
[2021-02-02] MEDS: Lactobacillus 1 EACH CAP.SPRINK PO SCH ×2 (07:31→21:44)
[2021-02-02] MEDS: Insulin LISPRO 300 UNITS/3 ML VIAL SUBQ SCH ×4 (07:31→21:45)
[2021-02-02 07:57] LABS: Basophils % 0.5 %; Eosinophils # 0.2 K/mcL (0.0-0.6); Eosinophils % 3.4 %; Hematocrit 30.8 % (37.5-50.1); Hemoglobin 9.6 g/dL (12.9-16.9); Lymphocytes # 0.8 K/mcL (0.6-4.6); Mean Corpuscular HGB Conc 31.2 g/dL (31.6-35.5); Mean Corpuscular Hemoglobin 30.7 pg (28.0-33.3); Mean Corpuscular Volume 98.4 fL (83.0-100.0); Mean Platelet Volume 11.3 fL (9.4-12.4); Monocytes # 0.6 K/mcL (0.0-1.3); Monocytes % 9.6 %; Neutrophils # 4.3 K/mcL (1.6-8.9); Platelet Count 174 K/mcL (140-400); Red Blood Count 3.13 M/mcL (4.19-5.50); Red Cell Distribution Width 18.4 % (11.5-14.5); Segmented Neutrophils % 71.5 %; White Blood Count 5.9 K/mcL (4.3-11.1)
[2021-02-02 08:01] LABS: Calcium 8.6 mg/dL (8.6-10.3); Potassium 4.3 mEq/L (3.5-5.1)
[2021-02-02] MEDS: QUEtiapine Fumarate 25 MG TABLET PO SCH (21:44)
[2021-02-03] MEDS: *HR* Heparin 5,000 UNIT/ML VIAL SQ SCH (06:44)
[2021-02-03] MEDS: Insulin LISPRO 300 UNITS/3 ML VIAL SUBQ SCH ×2 (07:15→11:30)
[2021-02-03] MEDS: Cholecalciferol (D-3) 1,000 UNIT (25MCG) TABLET PO SCH (08:19)
[2021-02-03] MEDS: Cyanocobalamin (B-12) 1,000 MCG TABLET PO SCH (08:19)
[2021-02-03] MEDS: Lactobacillus 1 EACH CAP.SPRINK PO SCH (08:19)
[2021-02-03] MEDS: Thiamine (B-1) 100 MG TABLET PO SCH (08:19)
[2021-02-03] MEDS: Aspirin 81 MG TAB.CHEW PO SCH (08:19)
[2021-02-03 15:35] VITALS: BP 125/66; PULSE 105; TEMP 97.9; O2SAT 94
== END 2021-02-03 17:30 | disposition home health service (06) | DRG 871 ==
LOC: 3BNU 15:26 → EMEROOARM 15:26 → SUATTDRO 18:39 → 2NNU 19:55 → SUATTDRO 01-27 12:36 → 2ANU 02-02 18:11
PROVIDERS: ADMIT Pharmacist; ATTEND Internal Medicine

== ENCOUNTER 2021-02-28 17:25 | Observation (INO) ==
[2021-02-28] MEDS ORDERED: Aspirin 325 MG TABLET PO ONE (17:48)
[2021-02-28] MEDS ORDERED: *HR* Heparin 5,000 UNIT/ML VIAL SQ ONE (18:00)
[2021-02-28] MEDS ORDERED: Isovue-370 500 ML BOTTLE IVP ONE (18:01)
[2021-02-28 18:08] LABS: Basophils % 0.2 %; Eosinophils # 0.1 K/mcL (0.0-0.6); Eosinophils % 1.4 %; Hematocrit 39.9 % (37.5-50.1); Hemoglobin 12.3 g/dL (12.9-16.9); Immature Granulocytes % 0.5 % (0-4); Lymphocytes # 1.1 K/mcL (0.6-4.6); Lymphocytes % 13.6 %; Mean Corpuscular HGB Conc 30.8 g/dL (31.6-35.5); Mean Corpuscular Hemoglobin 29.9 pg (28.0-33.3); Mean Corpuscular Volume 97.1 fL (83.0-100.0); Mean Platelet Volume 11.4 fL (9.4-12.4); Monocytes # 0.9 K/mcL (0.0-1.3); Monocytes % 10.4 %; Neutrophils # 6.1 K/mcL (1.6-8.9); Platelet Count 182 K/mcL (140-400); Red Blood Count 4.11 M/mcL (4.19-5.50); Red Cell Distribution Width 15.2 % (11.5-14.5); Segmented Neutrophils % 73.9 %; White Blood Count 8.3 K/mcL (4.3-11.1)
[2021-02-28 18:15] LABS: INR 1.2
[2021-02-28 18:18] LABS: Activated Partial Thrombo Time 23.9 Seconds (26.0-36.0)
[2021-02-28 18:43] LABS: Calcium 9.3 mg/dL (8.6-10.3); Potassium 3.9 mEq/L (3.5-5.1); Troponin I 0.04 ng/mL (< 0.04)
[2021-02-28] MEDS ORDERED: *HR* Heparin 5,000 UNIT/ML VIAL IVP PRN ×2 (20:05)
[2021-02-28] MEDS ORDERED: Heparin 25,000UNIT/250ML 1/2NS 25,000 UNIT/250 ML IV.SOLN IVC SCH (20:15)
[2021-02-28] MEDS ORDERED: *HR* Promethazine 25 MG/ML VIAL IM PRN (22:06)
[2021-02-28] MEDS ORDERED: Melatonin 3 MG TABLET PO PRN (22:06)
[2021-02-28] MEDS ORDERED: *HR* HYDROcodone/Acet 5/325 mg TABLET PO PRN (22:06)
[2021-02-28] MEDS ORDERED: Acetaminophen 325 MG TABLET PO PRN (22:06)
[2021-02-28] MEDS ORDERED: Naloxone 0.4 MG/ML INJ IVP PRN (22:06)
[2021-02-28] MEDS ORDERED: *HR* Dextrose 50 % in Water (Syg) 50 ML SYRINGE IVP PRN (22:09)
[2021-02-28] MEDS ORDERED: D5% in Water 1,000 ML IVC PRN (22:09)
[2021-02-28] MEDS ORDERED: Dextrose Gel 15 GM/37.5 ML TUBE PO PRN ×2 (22:09)
[2021-02-28 22:47] LABS: Hematocrit 40.1 % (37.5-50.1); Hemoglobin 12.2 g/dL (12.9-16.9); Mean Corpuscular HGB Conc 30.4 g/dL (31.6-35.5); Mean Corpuscular Volume 98.5 fL (83.0-100.0); Mean Platelet Volume 11.9 fL (9.4-12.4); Platelet Count 158 K/mcL (140-400); Red Blood Count 4.07 M/mcL (4.19-5.50); Red Cell Distribution Width 15.1 % (11.5-14.5); White Blood Count 9.2 K/mcL (4.3-11.1)
[2021-02-28 22:50] LABS: VBG HCO3 23 mEq/L (21-27); VBG PCO2 31 mmHg (41-51); VBG PH 7.48 pH Units (7.32-7.42); VBG PO2 127 mmHg (25-50)
[2021-02-28 22:55] LABS: Heparin anti-factor XA UFH 0.23 IU/mL (0.30-0.70)
[2021-02-28 22:56] LABS: INR 1.2; Prothrombin Time 12.9 Seconds (9.4-12.1)
[2021-02-28 23:11] LABS: Acetaminophen < 10 mcg/mL (10-20); Alanine Aminotransferase 57 Units/L (7-52); Albumin 3.2 g/dL (3.5-5.7); Alkaline Phosphatase 358 Units/L (34-104); Aspartate Amino Transferase 103 Units/L (13-39); Bilirubin,Direct 0.6 mg/dL (0.0-0.2); Bilirubin,Indirect 0.9 mg/dL (0.0-1.0); Bilirubin,Total 1.5 mg/dL (0.3-1.0); Ethanol < 10 mg/dL (Less than 10); Globulin 3.3 g/dL (2.4-3.5); Salicylate < 2.5 mg/dL (15.0-30.0); Total Protein 6.5 g/dL (6.4-8.9)
[2021-02-28 23:13] LABS: Adenovirus Not Detected (Not Detect); Bordetella Pertussis Not Detected (Not Detect); Chlamydophila pneumoniae Not Detected (Not Detect); Coronavirus 229E Not Detected (Not Detect); Coronavirus HKU1 Not Detected (Not Detect); Coronavirus NL63 Not Detected (Not Detect); Coronavirus OC43 Not Detected (Not Detect); Human Metapneumovirus Not Detected (Not Detect); Human Rhinovirus/Enterovirus Not Detected (Not Detect); Influenza A Subtype 2009 H1 Not Detected (Not Detect); Influenza B Not Detected (Not Detect); Mycoplasma pneumoniae Not Detected (Not Detect); Parainfluenza Virus 1 Not Detected (Not Detect); Parainfluenza Virus 2 Not Detected (Not Detect); Parainfluenza Virus 3 Not Detected (Not Detect); Parainfluenza Virus 4 Not Detected (Not Detect); Respiratory Syncytial Virus Not Detected (Not Detect); SARS-CoV-2 Not Detected (Not Detect)
[2021-03-01 00:47] LABS: Folate 15.3 ng/mL (3.0-16.0)
[2021-03-01] MEDS ORDERED: Perflutren Lipid Microsphere 1.3 ML in 0.9 % Sodium Chloride 8.7 ML IVP PRN (01:32)
[2021-03-01 03:51] LABS: Basophils % 0.1 %; Hematocrit 36.6 % (37.5-50.1); Hemoglobin 11.6 g/dL (12.9-16.9); Immature Granulocytes % 0.3 % (0-4); Lymphocytes # 0.5 K/mcL (0.6-4.6); Lymphocytes % 5.5 %; Mean Corpuscular HGB Conc 31.7 g/dL (31.6-35.5); Mean Corpuscular Hemoglobin 29.7 pg (28.0-33.3); Mean Corpuscular Volume 93.8 fL (83.0-100.0); Mean Platelet Volume 11.5 fL (9.4-12.4); Monocytes # 0.9 K/mcL (0.0-1.3); Monocytes % 10.2 %; Neutrophils # 7.2 K/mcL (1.6-8.9); Platelet Count 159 K/mcL (140-400); Red Cell Distribution Width 15.1 % (11.5-14.5); Segmented Neutrophils % 83.9 %; White Blood Count 8.6 K/mcL (4.3-11.1)
[2021-03-01 04:11] LABS: Estimated Average Glucose 146 mg/dl; Hemoglobin A1C 6.7 %
[2021-03-01 04:12] LABS: INR 1.2
[2021-03-01 04:13] LABS: Heparin anti-factor XA UFH 0.22 IU/mL (0.30-0.70)
[2021-03-01 05:41] LABS: Albumin 3.1 g/dL (3.5-5.7); Bilirubin,Total 1.2 mg/dL (0.3-1.0); Calcium 8.7 mg/dL (8.6-10.3); Chol/HDL Ratio 2.4 (0-4.9); Magnesium 1.8 mg/dL (1.6-2.6); Phosphorous 4.3 mg/dL (2.7-4.5); Potassium 4.8 mEq/L (3.5-5.1); Total Protein 6.1 g/dL (6.4-8.9); Troponin I 42.37 ng/mL (< 0.04)
[2021-03-01] MEDS ORDERED: carvediloL 6.25 MG TABLET PO SCH ×2 (08:00)
[2021-03-01] MEDS: Insulin LISPRO 300 UNITS/3 ML VIAL SUBQ SCH ×3 (09:40→16:23)
[2021-03-01] MEDS: Furosemide 20 MG/2 ML VIAL IVP SCH (10:09)
[2021-03-01] MEDS: Aspirin 81 MG TAB.CHEW PO SCH (10:09)
[2021-03-01] MEDS: Metoprolol XL (24 HR) Succ 25 MG TAB.ER.24H PO SCH (11:41)
[2021-03-01] MEDS: Heparin 25,000 UNIT/250 ML 25,000 UNIT/250 ML IV.SOLN IVC SCH (18:04)
[2021-03-01 20:21] LABS: Bilirubin,Urine Negative (Negative); Blood,Urine Negative (Negative); Clarity,Urine Clear (Clear); Color,Urine Yellow (Yellow); Glucose,Urine (UA) Normal (Normal); Ketones,Urine Trace mg/dL (Negative); Leukocyte Esterase,Urine Negative (Negative); Nitrite,Urine Negative (Negative); PH,Urine 5.5 pH Units (5.0-8.0); Protein,Urine Negative (Neg-Trace); Urobilinogen,Urine Normal (Normal)
[2021-03-01 20:39] LABS: Amphetamine Screen,Urine Negative ng/mL (Cutoff=1000); Barbiturate Screen,Urine Negative ng/mL (Cutoff=200); Benzodiazepines Screen,Urine Negative ng/mL (Cutoff=200); Cannabinoid Screen,Urine Negative ng/mL (Cutoff = 50); Cocaine Screen,Urine Negative ng/mL (Cutoff= 300); Opiate Screen,Urine Positive ng/mL (Cutoff=300); Phencyclidine Screen,Urine Negative ng/mL (Cutoff=25)
[2021-03-01] MEDS: QUEtiapine Fumarate 25 MG TABLET PO SCH (20:41)
[2021-03-02] MEDS: Insulin LISPRO 300 UNITS/3 ML VIAL SUBQ SCH ×3 (08:19→17:30)
[2021-03-02] MEDS: Aspirin 81 MG TAB.CHEW PO SCH (08:19)
[2021-03-02] MEDS: Furosemide 20 MG/2 ML VIAL IVP SCH (08:19)
[2021-03-02] MEDS: Metoprolol XL (24 HR) Succ 25 MG TAB.ER.24H PO SCH (08:19)
[2021-03-02 08:29] LABS: Hematocrit 33.6 % (37.5-50.1); Hemoglobin 10.4 g/dL (12.9-16.9); Mean Corpuscular Hemoglobin 29.8 pg (28.0-33.3); Mean Corpuscular Volume 96.3 fL (83.0-100.0); Mean Platelet Volume 11.8 fL (9.4-12.4); Platelet Count 151 K/mcL (140-400); Red Blood Count 3.49 M/mcL (4.19-5.50)
[2021-03-02 08:39] LABS: White Blood Count 4.1 K/mcL (4.3-11.1)
[2021-03-02 08:47] LABS: Calcium 8.7 mg/dL (8.6-10.3); Potassium 4.1 mEq/L (3.5-5.1)
[2021-03-02] MEDS: Heparin 25,000 UNIT/250 ML 25,000 UNIT/250 ML IV.SOLN IVC SCH (17:30)
[2021-03-02 19:27] VITALS: BP 148/64; PULSE 66; TEMP 98.5; O2SAT 91
[2021-03-02] MEDS: QUEtiapine Fumarate 25 MG TABLET PO SCH (21:26)
== END 2021-03-02 22:45 | disposition home or self-care (01) ==
LOC: 2ANU 17:25 → EMEROOARM 17:25 → SUATTDRO 20:55 → 2NNU 21:15 → 2ANU 03-01 14:51
PROVIDERS: ADMIT Internal Medicine; ATTEND Internal Medicine

== ENCOUNTER 2021-07-30 18:41 | Inpatient (IN) ==
[2021-07-30 19:32] LABS: Bilirubin,Urine Negative (Negative); Blood,Urine Negative (Negative); Clarity,Urine Clear (Clear); Color,Urine Yellow (Yellow); Glucose,Urine (UA) Normal (Normal); Ketones,Urine Negative (Negative); Leukocyte Esterase,Urine Negative (Negative); Nitrite,Urine Negative (Negative); PH,Urine 5.5 pH Units (5.0-8.0); Protein,Urine Trace mg/dL (Neg-Trace); Specific Gravity,Urine 1.018 (1.010-1.025); Urobilinogen,Urine Normal (Normal)
[2021-07-30 19:46] LABS: Basophils % 0.4 %; Eosinophils # 0.1 K/mcL (0.0-0.6); Eosinophils % 0.9 %; Hematocrit 34.7 % (37.5-50.1); Hemoglobin 10.9 g/dL (12.9-16.9); Immature Granulocytes % 0.4 % (0-4); Lymphocytes # 0.4 K/mcL (0.6-4.6); Mean Corpuscular HGB Conc 31.4 g/dL (31.6-35.5); Mean Corpuscular Hemoglobin 27.8 pg (28.0-33.3); Mean Corpuscular Volume 88.5 fL (83.0-100.0); Mean Platelet Volume 11.3 fL (9.4-12.4); Monocytes # 0.5 K/mcL (0.0-1.3); Monocytes % 9.7 %; Neutrophils # 4.4 K/mcL (1.6-8.9); Platelet Count 155 K/mcL (140-400); Red Blood Count 3.92 M/mcL (4.19-5.50); Red Cell Distribution Width 16.9 % (11.5-14.5); Segmented Neutrophils % 80.6 %; White Blood Count 5.5 K/mcL (4.3-11.1)
[2021-07-30] MEDS ORDERED: Isovue-370 500 ML BOTTLE IVP ONE (19:48)
[2021-07-30 20:10] LABS: Alanine Aminotransferase 28 Units/L (7-52); Albumin 3.5 g/dL (3.5-5.7); Albumin/Globulin Ratio 1.1 (1.1-2.2); Alkaline Phosphatase 106 Units/L (34-104); Aspartate Amino Transferase 36 Units/L (13-39); BUN/Creatinine Ratio 18 (6-26); Bilirubin,Direct 0.2 mg/dL (0.0-0.2); Bilirubin,Indirect 0.5 mg/dL (0.0-1.0); Bilirubin,Total 0.7 mg/dL (0.3-1.0); Blood Urea Nitrogen 46 mg/dL (8-23); Calcium 8.8 mg/dL (8.6-10.3); Carbon Dioxide 28 mEq/L (23-29); Chloride 102 mEq/L (98-107); Ethanol < 10 mg/dL (Less than 10); Globulin 3.2 g/dL (2.4-3.5); Glucose 104 mg/dL (70-105); Osmolality,Calculated 296 (280-300); Potassium 5.3 mEq/L (3.5-5.1); Sodium 137 mEq/L (136-145); Total Protein 6.7 g/dL (6.4-8.9); Troponin I 0.06 ng/mL (< 0.04); eGFR For African Americans 29 (> 60); eGFR For Non-African Americans 24 (> 60)
[2021-07-30 20:18] LABS: INR 1.3; Prothrombin Time 14.2 Seconds (9.4-12.1)
[2021-07-30 20:19] LABS: Amphetamine Screen,Urine Negative ng/mL (Cutoff=1000); Barbiturate Screen,Urine Negative ng/mL (Cutoff=200); Benzodiazepines Screen,Urine Negative ng/mL (Cutoff=200); Cannabinoid Screen,Urine Negative ng/mL (Cutoff = 50); Cocaine Screen,Urine Negative ng/mL (Cutoff= 300); Opiate Screen,Urine Negative ng/mL (Cutoff=300); Phencyclidine Screen,Urine Negative ng/mL (Cutoff=25)
[2021-07-30 20:20] LABS: Activated Partial Thrombo Time 30.7 Seconds (26.0-36.0)
[2021-07-30] MEDS ORDERED: 0.9 % Sodium Chloride 1,000 ML IV ONE (20:31)
[2021-07-30] MEDS ORDERED: Furosemide 40 MG/4 ML VIAL IVP ONE (21:29)
[2021-07-30] MEDS ORDERED: Piperacillin/Tazobactam 3.375 GM in 0.9 % Sodium Chloride Mini Bag 100 ML IVPB ONE (21:44)
[2021-07-30 23:04] LABS: Adenovirus Not Detected (Not Detect); Bordetella Pertussis Not Detected (Not Detect); Chlamydophila pneumoniae Not Detected (Not Detect); Coronavirus 229E Not Detected (Not Detect); Coronavirus HKU1 Not Detected (Not Detect); Coronavirus NL63 Not Detected (Not Detect); Coronavirus OC43 Not Detected (Not Detect); Human Metapneumovirus Not Detected (Not Detect); Human Rhinovirus/Enterovirus Not Detected (Not Detect); Influenza A Subtype 2009 H1 Not Detected (Not Detect); Influenza B Not Detected (Not Detect); Mycoplasma pneumoniae Not Detected (Not Detect); Parainfluenza Virus 1 Not Detected (Not Detect); Parainfluenza Virus 2 Not Detected (Not Detect); Parainfluenza Virus 3 Not Detected (Not Detect); Parainfluenza Virus 4 Not Detected (Not Detect); Respiratory Syncytial Virus Not Detected (Not Detect); SARS-CoV-2 Not Detected (Not Detect)
[2021-07-30] MEDS ORDERED: Ondansetron 4 MG/2 ML VIAL IVP PRN (23:09)
[2021-07-30] MEDS ORDERED: Melatonin 3 MG TABLET PO PRN (23:09)
[2021-07-30] MEDS ORDERED: Naloxone 0.4 MG/ML INJ IVP PRN (23:09)
[2021-07-31 01:37] LABS: Basophils % 0.4 %; Eosinophils # 0.1 K/mcL (0.0-0.6); Eosinophils % 1.6 %; Hematocrit 36.5 % (37.5-50.1); Hemoglobin 11.1 g/dL (12.9-16.9); Immature Granulocytes % 0.2 % (0-4); Lymphocytes # 0.5 K/mcL (0.6-4.6); Lymphocytes % 9.8 %; Mean Corpuscular HGB Conc 30.4 g/dL (31.6-35.5); Mean Corpuscular Hemoglobin 27.3 pg (28.0-33.3); Mean Corpuscular Volume 89.9 fL (83.0-100.0); Mean Platelet Volume 11.5 fL (9.4-12.4); Monocytes # 0.6 K/mcL (0.0-1.3); Monocytes % 11.5 %; Neutrophils # 3.9 K/mcL (1.6-8.9); Platelet Count 149 K/mcL (140-400); Red Blood Count 4.06 M/mcL (4.19-5.50); Red Cell Distribution Width 16.7 % (11.5-14.5); Segmented Neutrophils % 76.5 %; White Blood Count 5.1 K/mcL (4.3-11.1)
[2021-07-31 01:44] LABS: INR 1.2; Prothrombin Time 13.8 Seconds (9.4-12.1)
[2021-07-31 02:11] LABS: Albumin 3.5 g/dL (3.5-5.7); Albumin/Globulin Ratio 1.1 (1.1-2.2); Bilirubin,Total 0.8 mg/dL (0.3-1.0); Calcium 8.9 mg/dL (8.6-10.3); Globulin 3.2 g/dL (2.4-3.5); Magnesium 2.4 mg/dL (1.6-2.6); Phosphorous 4.3 mg/dL (2.7-4.5); Potassium 5.2 mEq/L (3.5-5.1); Total Protein 6.7 g/dL (6.4-8.9)
[2021-07-31] MEDS ORDERED: Dextrose 4 GM Chewable Tablets PO PRN ×2 (05:36)
[2021-07-31] MEDS ORDERED: D5% in Water 1,000 ML IVC PRN (05:36)
[2021-07-31] MEDS ORDERED: *HR* Dextrose 50 % in Water (Syg) 50 ML SYRINGE IVP PRN (05:36)
[2021-07-31] MEDS: Piperacillin/Tazobactam 3.375 GM in 0.9 % Sodium Chloride Mini Bag 100 ML IVPB SCH ×3 (06:11→21:07)
[2021-07-31 07:32] LABS: Lactate Dehydrogenase 207 Units/L (140-271); Total Protein 6.6 g/dL (6.4-8.9)
[2021-07-31 08:15] LABS: ABG Base Excess 3 mEq/L (-2 to 3); ABG HCO3 28 mEq/L (21-27); ABG Oxygen Saturation 79 % (95-98); ABG PCO2 45 mmHg (35-45); ABG PO2 44 mmHg (85-104); ABG TCO2 30 mEq/L (20-26)
[2021-07-31] MEDS: Furosemide 40 MG/4 ML VIAL IVP SCH (09:45)
[2021-07-31] MEDS ORDERED: Perflutren Lipid Microsphere 1.3 ML in 0.9 % Sodium Chloride 8.7 ML IVP PRN (11:43)
[2021-07-31] MEDS ORDERED: Haloperidol Lactate 5 MG/ML VIAL IVP PRN (14:59)
[2021-07-31] MEDS: QUEtiapine Fumarate 25 MG TABLET PO SCH (21:06)
[2021-08-01 00:50] LABS: Hematocrit 32.6 % (37.5-50.1); Hemoglobin 9.9 g/dL (12.9-16.9); Mean Corpuscular HGB Conc 30.4 g/dL (31.6-35.5); Mean Corpuscular Hemoglobin 27.1 pg (28.0-33.3); Mean Corpuscular Volume 89.3 fL (83.0-100.0); Mean Platelet Volume 11.4 fL (9.4-12.4); Platelet Count 120 K/mcL (140-400); Red Blood Count 3.65 M/mcL (4.19-5.50); Red Cell Distribution Width 16.5 % (11.5-14.5); White Blood Count 4.6 K/mcL (4.3-11.1)
[2021-08-01 01:04] LABS: Calcium 8.5 mg/dL (8.6-10.3); Potassium 5.3 mEq/L (3.5-5.1)
[2021-08-01] MEDS: Piperacillin/Tazobactam 3.375 GM in 0.9 % Sodium Chloride Mini Bag 100 ML IVPB SCH ×3 (04:48→21:14)
[2021-08-01] MEDS: Cyanocobalamin (B-12) 1,000 MCG TABLET PO SCH (08:54)
[2021-08-01] MEDS: Furosemide 40 MG/4 ML VIAL IVP SCH (08:54)
[2021-08-01] MEDS: Aspirin 81 MG TAB.CHEW PO SCH (08:54)
[2021-08-01] MEDS: Thiamine (B-1) 100 MG TABLET PO SCH (08:54)
[2021-08-01] MEDS: QUEtiapine Fumarate 25 MG TABLET PO SCH (19:56)
[2021-08-02 03:15] LABS: Hematocrit 37.1 % (37.5-50.1); Hemoglobin 11.3 g/dL (12.9-16.9); Mean Corpuscular HGB Conc 30.5 g/dL (31.6-35.5); Mean Corpuscular Hemoglobin 27.2 pg (28.0-33.3); Mean Corpuscular Volume 89.4 fL (83.0-100.0); Mean Platelet Volume 11.6 fL (9.4-12.4); Platelet Count 122 K/mcL (140-400); Red Blood Count 4.15 M/mcL (4.19-5.50); Red Cell Distribution Width 16.6 % (11.5-14.5); White Blood Count 5.5 K/mcL (4.3-11.1)
[2021-08-02 03:34] LABS: Calcium 8.6 mg/dL (8.6-10.3); Potassium 4.9 mEq/L (3.5-5.1)
[2021-08-02] MEDS: Piperacillin/Tazobactam 3.375 GM in 0.9 % Sodium Chloride Mini Bag 100 ML IVPB SCH ×3 (05:01→21:34)
[2021-08-02] MEDS: Furosemide 40 MG/4 ML VIAL IVP SCH (08:22)
[2021-08-02] MEDS: Cyanocobalamin (B-12) 1,000 MCG TABLET PO SCH (08:24)
[2021-08-02] MEDS: Thiamine (B-1) 100 MG TABLET PO SCH (08:24)
[2021-08-02] MEDS: Aspirin 81 MG TAB.CHEW PO SCH (08:24)
[2021-08-02] MEDS: QUEtiapine Fumarate 25 MG TABLET PO SCH (21:29)
[2021-08-03 01:42] LABS: Calcium 8.3 mg/dL (8.6-10.3); Potassium 4.8 mEq/L (3.5-5.1)
[2021-08-03] MEDS: Piperacillin/Tazobactam 3.375 GM in 0.9 % Sodium Chloride Mini Bag 100 ML IVPB SCH ×2 (06:17→18:09)
[2021-08-03] MEDS: Furosemide 40 MG/4 ML VIAL IVP SCH (09:05)
[2021-08-03] MEDS: Thiamine (B-1) 100 MG TABLET PO SCH (09:06)
[2021-08-03] MEDS: Cyanocobalamin (B-12) 1,000 MCG TABLET PO SCH (09:06)
[2021-08-03] MEDS: Aspirin 81 MG TAB.CHEW PO SCH (09:06)
[2021-08-03] MEDS ORDERED: E-Z-HD (BARIUM SULF) SUSPENSION PO ONE (10:43)
[2021-08-03] MEDS ORDERED: E-Z-PAQUE (BARIUM SULF) SUSP 1 BOTTLE PO ONE (10:43)
[2021-08-03] MEDS ORDERED: Piperacillin/Tazobactam 3.375 GM in 0.9 % Sodium Chloride Mini Bag 100 ML IVPB SCH (18:00)
[2021-08-03] MEDS: QUEtiapine Fumarate 25 MG TABLET PO SCH (19:23)
[2021-08-04] MEDS: Piperacillin/Tazobactam 3.375 GM in 0.9 % Sodium Chloride Mini Bag 100 ML IVPB SCH (05:43)
[2021-08-04 06:04] LABS: Hematocrit 36.5 % (37.5-50.1); Hemoglobin 11.2 g/dL (12.9-16.9); Mean Corpuscular HGB Conc 30.7 g/dL (31.6-35.5); Mean Platelet Volume 10.9 fL (9.4-12.4); Platelet Count 143 K/mcL (140-400); Red Blood Count 4.15 M/mcL (4.19-5.50); Red Cell Distribution Width 16.3 % (11.5-14.5); White Blood Count 5.5 K/mcL (4.3-11.1)
[2021-08-04 06:25] LABS: Calcium 8.1 mg/dL (8.6-10.3); Potassium 4.3 mEq/L (3.5-5.1)
[2021-08-04] MEDS: Thiamine (B-1) 100 MG TABLET PO SCH (09:25)
[2021-08-04] MEDS: Furosemide 40 MG/4 ML VIAL IVP SCH (09:25)
[2021-08-04] MEDS: Cyanocobalamin (B-12) 1,000 MCG TABLET PO SCH (09:25)
[2021-08-04] MEDS: Aspirin 81 MG TAB.CHEW PO SCH (09:25)
[2021-08-04] MEDS: Amoxicillin/Clavulanate 500 MG TABLET PO SCH (15:56)
[2021-08-04] MEDS: QUEtiapine Fumarate 25 MG TABLET PO SCH (19:50)
[2021-08-05 01:20] LABS: Hematocrit 34.8 % (37.5-50.1); Hemoglobin 10.9 g/dL (12.9-16.9); Mean Corpuscular HGB Conc 31.3 g/dL (31.6-35.5); Mean Corpuscular Hemoglobin 27.5 pg (28.0-33.3); Mean Corpuscular Volume 87.7 fL (83.0-100.0); Mean Platelet Volume 10.9 fL (9.4-12.4); Platelet Count 157 K/mcL (140-400); Red Blood Count 3.97 M/mcL (4.19-5.50); Red Cell Distribution Width 16.1 % (11.5-14.5); White Blood Count 7.1 K/mcL (4.3-11.1)
[2021-08-05 01:39] LABS: Calcium 8.4 mg/dL (8.6-10.3); Potassium 4.8 mEq/L (3.5-5.1)
[2021-08-05] MEDS: Furosemide 40 MG/4 ML VIAL IVP SCH (09:51)
[2021-08-05] MEDS: Thiamine (B-1) 100 MG TABLET PO SCH (09:52)
[2021-08-05] MEDS: Aspirin 81 MG TAB.CHEW PO SCH (09:52)
[2021-08-05] MEDS: Amoxicillin/Clavulanate 500 MG TABLET PO SCH ×2 (09:52→18:02)
[2021-08-05] MEDS: Cyanocobalamin (B-12) 1,000 MCG TABLET PO SCH (09:53)
[2021-08-05] MEDS: QUEtiapine Fumarate 25 MG TABLET PO SCH (20:04)
[2021-08-06 01:53] LABS: Calcium 8.2 mg/dL (8.6-10.3); Potassium 4.1 mEq/L (3.5-5.1)
[2021-08-06] MEDS: Aspirin 81 MG TAB.CHEW PO SCH (08:57)
[2021-08-06] MEDS: Amoxicillin/Clavulanate 500 MG TABLET PO SCH ×2 (08:57→16:40)
[2021-08-06] MEDS: Furosemide 40 MG/4 ML VIAL IVP SCH (08:57)
[2021-08-06] MEDS: Thiamine (B-1) 100 MG TABLET PO SCH (08:58)
[2021-08-06] MEDS: Cyanocobalamin (B-12) 1,000 MCG TABLET PO SCH (08:58)
[2021-08-06] MEDS ORDERED: Ringers Solution, Lactated 250 ML IVC ONE (16:26)
[2021-08-06] MEDS: QUEtiapine Fumarate 25 MG TABLET PO SCH (19:32)
[2021-08-07] MEDS: Thiamine (B-1) 100 MG TABLET PO SCH (08:15)
[2021-08-07] MEDS: Cyanocobalamin (B-12) 1,000 MCG TABLET PO SCH (08:15)
[2021-08-07] MEDS: Amoxicillin/Clavulanate 500 MG TABLET PO SCH ×2 (08:15→17:16)
[2021-08-07] MEDS: Furosemide 40 MG/4 ML VIAL IVP SCH (08:15)
[2021-08-07] MEDS: Aspirin 81 MG TAB.CHEW PO SCH (08:15)
[2021-08-07] MEDS: QUEtiapine Fumarate 25 MG TABLET PO SCH (20:35)
[2021-08-08] MEDS: Thiamine (B-1) 100 MG TABLET PO SCH (09:14)
[2021-08-08] MEDS: Aspirin 81 MG TAB.CHEW PO SCH (09:14)
[2021-08-08] MEDS: Cyanocobalamin (B-12) 1,000 MCG TABLET PO SCH (09:16)
[2021-08-08] MEDS: Furosemide 40 MG/4 ML VIAL IVP SCH (09:17)
[2021-08-08] MEDS: Amoxicillin/Clavulanate 500 MG TABLET PO SCH ×2 (09:17→17:32)
[2021-08-08] MEDS: QUEtiapine Fumarate 25 MG TABLET PO SCH (21:08)
[2021-08-09] MEDS: Amoxicillin/Clavulanate 500 MG TABLET PO SCH ×2 (07:44→18:04)
[2021-08-09] MEDS: Cyanocobalamin (B-12) 1,000 MCG TABLET PO SCH (07:44)
[2021-08-09] MEDS: Thiamine (B-1) 100 MG TABLET PO SCH (07:44)
[2021-08-09] MEDS: Furosemide 40 MG/4 ML VIAL IVP SCH (07:44)
[2021-08-09] MEDS: Aspirin 81 MG TAB.CHEW PO SCH (07:51)
[2021-08-09] MEDS: QUEtiapine Fumarate 25 MG TABLET PO SCH (20:31)
[2021-08-10 01:32] LABS: Hematocrit 31.9 % (37.5-50.1); Mean Corpuscular HGB Conc 31.3 g/dL (31.6-35.5); Mean Corpuscular Hemoglobin 27.4 pg (28.0-33.3); Mean Corpuscular Volume 87.4 fL (83.0-100.0); Mean Platelet Volume 10.9 fL (9.4-12.4); Platelet Count 148 K/mcL (140-400); Red Blood Count 3.65 M/mcL (4.19-5.50); Red Cell Distribution Width 16.7 % (11.5-14.5); White Blood Count 4.9 K/mcL (4.3-11.1)
[2021-08-10 01:52] LABS: Calcium 8.9 mg/dL (8.6-10.3); Potassium 4.6 mEq/L (3.5-5.1)
[2021-08-10] MEDS: Furosemide 40 MG/4 ML VIAL IVP SCH (07:22)
[2021-08-10] MEDS: Thiamine (B-1) 100 MG TABLET PO SCH (07:22)
[2021-08-10] MEDS: Aspirin 81 MG TAB.CHEW PO SCH (07:22)
[2021-08-10] MEDS: Amoxicillin/Clavulanate 500 MG TABLET PO SCH ×2 (07:22→15:40)
[2021-08-10] MEDS: Cyanocobalamin (B-12) 1,000 MCG TABLET PO SCH (07:22)
[2021-08-10] MEDS: QUEtiapine Fumarate 25 MG TABLET PO SCH (19:17)
[2021-08-11] MEDS: Furosemide 40 MG/4 ML VIAL IVP SCH (07:57)
[2021-08-11] MEDS: Thiamine (B-1) 100 MG TABLET PO SCH (07:57)
[2021-08-11] MEDS: Aspirin 81 MG TAB.CHEW PO SCH (07:57)
[2021-08-11] MEDS: Cyanocobalamin (B-12) 1,000 MCG TABLET PO SCH (07:57)
[2021-08-11] MEDS: Amoxicillin/Clavulanate 500 MG TABLET PO SCH (07:57)
[2021-08-11] MEDS: QUEtiapine Fumarate 25 MG TABLET PO SCH (21:21)
[2021-08-12] MEDS ORDERED: Moderna Covid-19 Vaccine 100MCG/0.5mL IM ONE (08:21)
[2021-08-12] MEDS: Aspirin 81 MG TAB.CHEW PO SCH (09:33)
[2021-08-12] MEDS: Thiamine (B-1) 100 MG TABLET PO SCH (09:33)
[2021-08-12] MEDS: Furosemide 40 MG/4 ML VIAL IVP SCH (09:33)
[2021-08-12] MEDS: Cyanocobalamin (B-12) 1,000 MCG TABLET PO SCH (09:33)
[2021-08-12 11:38] VITALS: BP 106/55; PULSE 87; TEMP 97.6; O2SAT 98
== END 2021-08-12 17:17 | DRG 177 ==
LOC: 2ANU 18:41 → EMEROOARM 18:41 → SUATTDRO 21:52 → 2ANU 23:04 → SUATTDRO 08-01 13:17 → 2ANU 08-04 10:29
PROVIDERS: ADMIT Internal Medicine; ATTEND Internal Medicine